=== PATIENT | female | born 1970 | race Caucasian/White ===

== ENCOUNTER 2022-10-31 10:49 | Outpatient (CLI) | payer OTHER, SELFPAY ==
--- NOTE | 2022-10-31 11:00 | CRLHL7_ITS ---
For Patients: As a result of the Century Cures Act, medical imaging exams and procedure reports are released immediately into your electronic medical record. You may view this report before your referring provider. If you have questions, please contact your health care provider. INDICATION: ABNORMAL UTERINE AND VAGINAL Bleeding COMPARISON: none TECHNIQUE: 2D katz scale and color Doppler images were acquired of the pelvis using a transabdominal and transvaginal approach. FINDINGS: Sonographic images demonstrate a normal size and smooth outer contour of the uterus. Uterus measures 7.5 cm in length by 3.4 cm in AP diameter by 5.1 cm in transverse dimension. The myometrium has a heterogeneous echotexture. The endometrial lining appears heterogeneous and measures 6 mm in composite thickness. The right ovary measures 2.7 x 1.8 x 2.1 cm in size and the left ovary measures 2.5 x 1.2 x 1.4 cm. Small cyst or follicle left ovary measuring 1.3 cm. The ovaries demonstrate normal arterial and venous blood flow on color Doppler analysis. There are no suspicious fluid collections within the cul-de-sac. IMPRESSION: Endometrial thickness 6 millimeters. No uterine fibroid. Dictated by Ebenezer Shoemaker MD @ 10/31/2022 12:08:44 PM (Electronically Signed)
== END 2022-10-31 10:50 | disposition home or self-care (01) ==
PROVIDERS: PCP Nurse Practitioner Family; Visit Provider Nurse Practitioner Family
DX: N93.9 Abnormal uterine and vaginal bleeding, unspecified (principal); R93.89 Abnormal findings on diagnostic imaging of other specified body structures
CPT/HCPCS: 76830; 76856